=== PATIENT | male | born 1955 | race Caucasian/White ===

== ENCOUNTER → 2019-09-18 11:36 | Outpatient (CLI) | payer MEDICARE, OTHER, SELFPAY ==
[2019-09-18 10:27] VITALS: BMI 31.4
[2019-09-18 12:12] LABS: Absolute Lymphocyte Count 1.12 X10^3/uL (0.83-4.51); Absolute Neutrophil Count 3.5 X10^3/uL (2.0-7.7); Basophil# 0.02 X10^3/uL; Basophil% 0.4 % (0-1); Eosinophil# 0.25 X10^3/uL; Eosinophils% 4.6 % (0-5); Hematocrit 41.5 % (40-54); Hemoglobin 13.6 g/dL (13.0-16.5); Lymphocyte # 1.12 X10^3/ul (4.0); Lymphocyte % 20.7 % (19-41); Mean Corp Hgb Conc 32.8 g/dL (32-36); Mean Corpuscular Hgb 30.6 pg (27.0-32.0); Mean Corpuscular Volume 93.5 fL (80-94); Mean Platelet Vol. 10.1 fl (6.2-12.0); Monocyte# 0.47 X10^3/uL; Monocyte% 8.7 % (0-10); NRBC Flagged by Analyzer 0 % (0-5); Neutrophil # 3.53 X10^3/uL (2.7-7.7); Neutrophil % 65.2 % (47-70); Platelet Count 218 K/mm3 (150-450); RBC Distribution Width CV 12.8 % (11.6-14.6); RBC Distribution Width SD 44.1 fl (35.1-43.9); Red Blood Count 4.44 M/mm3 (4.6-6.2); White Blood Count 5.4 K/mm3 (4.4-11.0)
[2019-09-22 03:06] LABS: Aspergillus fumigatus 2.56 kU/L (Class III); Aspirgillus flavus Negative (Neg:<1:1); Aspirgillus fumigatus Negative (Neg:<1:1); Aspirgillus niger Negative (Neg:<1:1); Birch 9.29 kU/L (Class IV); Cat Hair / Dander,Stand 0.54 kU/L (Class I); Cedar, Mountain 2.43 kU/L (Class III); Cockroach, American 0.43 kU/L (Class I); Cottonwood 9.26 kU/L (Class IV); D farinae Mite 3.39 kU/L (Class III); D pteronyssinus 3.28 kU/L (Class III); Dog Epithelia 0.76 kU/L (Class II); Elm, American White 7.52 kU/L (Class IV); Immunoglobulin E 992 IU/mL (6-495); Mulberry, White 0.75 kU/L (Class II); Oak, White 7.96 kU/L (Class IV); Penicillium Notatum 2.84 kU/L (Class III); Pigweed, Rough 9.89 kU/L (Class IV); Russian Thistle 5.62 kU/L (Class IV); Sheep Sorrel 8.67 kU/L (Class IV); Sycamore, American 8.75 kU/L (Class IV)
[2019-09-22 13:34] LABS: Immunoglobulin E 924 IU/mL (6-495)
[2019-09-22 13:35] LABS: Mouse Urine <0.10 kU/L (Class 0)
== END ==
PROVIDERS: Family Provider Family Medicine Geriatric Medicine; PCP Family Medicine Geriatric Medicine; Referring Provider Internal Medicine Critical Care Medicine; Visit Provider Internal Medicine Critical Care Medicine
DX: J44.9 Chronic obstructive pulmonary disease, unspecified (principal); M35.1 Other overlap syndromes
CPT/HCPCS: 36415; 82785; 85025; 86003; 86606